=== PATIENT | female | born 1980 | race Caucasian/White ===

== ENCOUNTER 2020-10-19 19:57 | Emergency (ER) | payer BC, OTHER ==
[~2020-10-19] VITALS: Ht 162.6 cm; Wt 57.2 kg
[2020-10-19] MEDS ORDERED: LACTATED RINGERS 1,000 ML IV ONE (20:30)
[2020-10-19 20:34] LABS: BASOPHILS % (AUTO) 0 % (0-10); BILIRUBIN,URINE NEGATIVE (NEGATIVE); CLARITY,URINE SL CLOUDY; COLOR,URINE YELLOW; EOSINOPHILS # (AUTO) 0.3 10^3/uL (0.0-0.3); EOSINOPHILS % (AUTO) 4 % (0-10); GLUCOSE, URINE (UA) NEGATIVE (NEGATIVE); HEMATOCRIT 44 % (35-52); HEMOGLOBIN 14.1 g/dL (11.5-16.0); KETONES,URINE NEGATIVE (NEGATIVE); LEUKOCYTE ESTERASE ,URINE NEGATIVE (NEGATIVE); LYMPHOCYTES # (AUTO) 2.5 10^3/uL (1.0-4.0); LYMPHOCYTES % (AUTO) 32 % (12-44); MEAN CORPUSCULAR HEMOGLOBIN 29 pg (25-34); MEAN CORPUSCULAR HGB CONC 32 g/dL (32-36); MEAN CORPUSCULAR VOLUME 90 fL (80-99); MONOCYTES # (AUTO) 0.5 10^3/uL (0.0-1.0); MONOCYTES % (AUTO) 7 % (0-12); NEUTROPHILS # (AUTO) 4.5 10^3/uL (1.8-7.8); NEUTROPHILS % (AUTO) 57 % (42-75); NITRITE,URINE NEGATIVE (NEGATIVE); PLATELET COUNT 309 10^3/uL (130-400); PROTEIN,URINE NEGATIVE (NEGATIVE); WHITE BLOOD COUNT 7.9 10^3/uL (4.3-11.0)
[2020-10-19 20:42] LABS: BACTERIA,URINE TRACE /HPF; SQUAMOUS EPITHELIAL CELL,UR >50 /HPF
[2020-10-19] MEDS ORDERED: ACETAMINOPHEN 500 MG TAB (TYLENOL) PO ONE (20:45)
[2020-10-19] MEDS ORDERED: PROMETHAZINE INJ 25 MG/ML (PHENERGAN) AMP IVP ONE (20:45)
--- NOTE | 2020-10-19 20:49 | ED GU-Female ---
General Chief Complaint: Female Reproductive Stated Complaint: 4 WKS PREG/MED WITHDRAWL/NAUSEA/VOMITING Nursing Triage Note: PT AMBULATE TO ROOM 05 WITH C/O N/V/ABD PAIN. PT REPORTS STOPPING PRISTIN ON WEDNESDAY AND HAS HAD SYMPTOMS SINCE THEN. Nursing Sepsis Screen: No Definite Risk Source: patient Exam Limitations: no limitations History of Present Illness Date Seen by Provider: Oct 19, 2020 Time Seen by Provider: 20:16 Initial Comments Patient presents ER by private conveyance with chief complaint she has some nausea body aches and vomiting and poor appetite for the past 3 to 4 days. 4 days ago on Wednesday she discovered she was because she started having b reast fullness, morning sickness. She had a positive urine test on 10/15/2020. She has not set up follow-up with a OB yet but she is thinking about using Dr. Fajardo at [employer]. She works at [employer] in the [employer]. She says she had a negative Covid test a week or 2 ago and no known sick contacts. She does not want to be tested today. She is having no fevers or chills. She said one of her children she had lots of nausea and vomiting and the other she did not. She went to urgent care yesterday and got some Phenergan which helped some. She is a G3, P2 with unknown last menstrual period because of her irregular periods. She thinks she is around 4 weeks but does not now. No ultrasound yet. No diarrhea rash or significant other medical history. She is on Pristiq/desvenlafaxine and stopped it on Wednesday when she discovered she was . Her last child is 16 years old. She denies any dysuria discharge or history of STDs. She was tested 1 year ago and was negative when she got . She is in a monogamous relationship. She is not having dyspareunia and her last intercourse was about 6 days ago. She is having some discomfort in her low pelvis that she describes not as cramping but as sharp intermittent stinging pain. She has not taken anything for the pain recently. She has had C-sections but no other abdominal surgeries. No fever Allergies and Home Medications Allergies Coded Allergies: Penicillins (Verified Allergy, Unknown, 10/19/20) Patient Home Medication List Home Medication List Reviewed: Yes Review of Systems Review of Systems Constitutional: No chills, No fever, No malaise EENTM: No ear discharge, No hearing loss, No ear pain Respiratory: No cough, No dyspnea on exertion Cardiovascular: No chest pain, No palpitations Gastrointestinal: abdominal pain (Low pelvic bilateral); No constipation, No diarrhea; loss of appetite, nausea, vomiting Genitourinary: denies burning, denies discharge, denies dysuria Musculoskeletal: No back pain, No joint pain All Other Systemes Reviewed Negative Unless Noted: Yes Past Oqtzdwy-Oospge-Tozckq Hx Patient Social History Alcohol Use: Denies Use Recreational Drug Use: No Smoking Status: Never a Smoker 2nd Hand Smoke Exposure: No Recent Foreign Travel: No Contact w/Someone Who Travel: No Recent Infectious Disease Expo: No Recent Hopitalizations: No Physical Abuse: No Sexual Abuse: No Mistreated: No Fear: No Seasonal Allergies Seasonal Allergies: No Past Medical History Surgeries: No Respiratory: No Cardiac: No Neurological: No Genitourinary: No Gastrointestinal: No Musculoskeletal: No Endocrine: No HEENT: No Cancer: No Psychosocial: Yes Anxiety Integumentary: No Blood Disorders: No Physical Exam Vital Signs Vital Signs - First Documented 10/19/20 20:14 Temp 36.8 Pulse 105 Resp 18 B/P (MAP) 124/87 (99) O2 Delivery Room Air Capillary Refill : Less Than 3 Seconds Height, Weight, BMI Height: '" Weight: lbs. oz. kg; 21.00 BMI Method: General Appearance: WD/WN, mild distress HEENT: PERRL/EOMI, pharynx normal Neck: full range of motion, normal inspection Cardiovascular: normal peripheral pulses, regular rate, rhythm, tachycardia (105) Respiratory: lungs clear, normal breath sounds, no respiratory distress, no accessory muscle use Gastrointestinal: normal bowel sounds, soft, tenderness (Suprapubic), other (Negative for pain over McBurney's point, Bucio sign, psoas sign or mesenteric signs. No Rovsing sign. Tenderness along the inguinal canal bilaterally to moderate pressure) Extremities: normal range of motion, non-tender Neurologic/Psychiatric: alert, normal mood/affect, oriented x 3 Skin: normal color, warm/dry Progress/Results/Core Measures Suspected Sepsis Recent Fever Within 48 Hours: No Infection Criteria Present: None New/Unexplained Altered Menta: No Sepsis Screen: No Definite Risk SIRS Temperature: Pulse: 105 Respiratory Rate: 18 Laboratory Tests 10/19/20 20:15: White Blood Count 7.9 Blood Pressure 124 /87 Mean: 99 Laboratory Tests 10/19/20 20:15: Creatinine 0.80, Platelet Count 309, Total Bilirubin 0.2 Results/Orders Lab Results Laboratory Tests Test 10/19/20 20:15 Range/Units White Blood Count 7.9 4.3-11.0 10^3/uL Red Blood Count 4.85 3.80-5.11 10^6/uL Hemoglobin 14.1 11.5-16.0 g/dL Hematocrit 44 35-52 % Mean Corpuscular Volume 90 80-99 fL Mean Corpuscular Hemoglobin 29 25-34 pg Mean Corpuscular Hemoglobin Concent 32 32-36 g/dL Red Cell Distribution Width 11.9 10.0-14.5 % Platelet Count 309 130-400 10^3/uL Mean Platelet Volume 11.0 9.0-12.2 fL Immature Granulocyte % (Auto) 0 % Neutrophils (%) (Auto) 57 42-75 % Lymphocytes (%) (Auto) 32 12-44 % Monocytes (%) (Auto) 7 0-12 % Eosinophils (%) (Auto) 4 0-10 % Basophils (%) (Auto) 0 0-10 % Neutrophils # (Auto) 4.5 1.8-7.8 10^3/uL Lymphocytes # (Auto) 2.5 1.0-4.0 10^3/uL Monocytes # (Auto) 0.5 0.0-1.0 10^3/uL Eosinophils # (Auto) 0.3 0.0-0.3 10^3/uL Basophils # (Auto) 0.0 0.0-0.1 10^3/uL Immature Granulocyte # (Auto) 0.0 0.0-0.1 10^3/uL Urine Color YELLOW Urine Clarity SL CLOUDY Urine pH 6.0 5-9 Urine Specific [place] 1.025 H 1.016-1.022 Urine Protein NEGATIVE NEGATIVE Urine Glucose (UA) NEGATIVE NEGATIVE Urine Ketones NEGATIVE NEGATIVE Urine Nitrite NEGATIVE NEGATIVE Urine Bilirubin NEGATIVE NEGATIVE Urine Urobilinogen 0.2 < = 1.0 MG/DL Urine Leukocyte Esterase NEGATIVE NEGATIVE Urine RBC (Auto) TRACE-I NEGATIVE Urine RBC 2-5 H /HPF Urine WBC NONE /HPF Urine Squamous Epithelial Cells >50 H /HPF Urine Crystals NONE /LPF Urine Bacteria TRACE /HPF Urine Casts NONE /LPF Urine Mucus NEGATIVE /LPF Urine Culture Indicated NO Urine Test POSITIVE NEGATIVE Sodium Level 137 135-145 MMOL/L Potassium Level 3.8 3.6-5.0 MMOL/L Chloride Level 103 98-107 MMOL/L Carbon Dioxide Level 27 21-32 MMOL/L Anion Gap 7 5-14 MMOL/L Blood Urea Nitrogen 11 7-18 MG/DL Creatinine 0.80 0.60-1.30 MG/DL Estimat Glomerular Filtration Rate > 60 BUN/Creatinine Ratio 14 Glucose Level 94 70-105 MG/DL Calcium Level 9.6 8.5-10.1 MG/DL Corrected Calcium 8.5-10.1 MG/DL Total Bilirubin 0.2 0.1-1.0 MG/DL Aspartate Amino Transf (AST/SGOT) 23 5-34 U/L Alanine Aminotransferase (ALT/SGPT) 22 0-55 U/L Alkaline Phosphatase 61 40-136 U/L Total Protein 8.1 6.4-8.2 GM/DL Albumin 4.6 H 3.2-4.5 GM/DL My Orders Orders - APOLLO KIMBLE Ed Iv/Invasive Line Start (10/19/20 20:27) Lactated Ringers (Lr 1000 Ml Iv Solution (10/19/20 20:30) Ua Culture If Indicated (10/19/20 20:27) Hcg,Qualitative Urine (10/19/20 20:27) Cbc With Automated Diff (10/19/20 20:27) Comprehensive Metabolic Panel (10/19/20 20:27) Acetaminophen Tablet (Tylenol Tablet) (10/19/20 20:45) Promethazine Injection (Phenergan Injec (10/19/20 20:45) Diphenhydramine Injection (Benadryl Inje (10/19/20 21:45) Medications Given in ED Current Medications Medications Dose Ordered Sig/Latrice Route Start Time Stop Time Status Last Admin Dose Admin Acetaminophen 1,000 mg ONCE ONCE PO 10/19/20 20:45 10/19/20 20:46 DC 10/19/20 20:41 1,000 MG Diphenhydramine HCl 25 mg ONCE ONCE IVP 10/19/20 21:45 10/19/20 21:46 DC 10/19/20 21:47 25 MG Lactated Ringer's 1,000 ml @ 0 mls/hr Q0M ONCE IV 10/19/20 20:30 10/19/20 20:31 DC 10/19/20 20:41 999 MLS/HR Promethazine HCl 25 mg ONCE ONCE IVP 10/19/20 20:45 10/19/20 20:46 DC 10/19/20 20:40 25 MG Vital Signs/I&O 10/19/20 20:14 Temp 36.8 Pulse 105 Resp 18 B/P (MAP) 124/87 (99) O2 Delivery Room Air Capillary Refill : Less Than 3 Seconds Blood Pressure Mean: 99 Progress Note #1: Time: 20:48 Progress Note Could be round ligament pain versus other intra-abdominal infection such as appendicitis etc. She declined any viral testing today. She is not having a fever cough or loss of sense of taste or smell. Plan to give her some Phenergan and IV fluids check some basic labs and urinalysis. If these are okay then we can set her up for ultrasound outpatient. If there is anything concerning then we can try and get an ultrasound done tonight. Her pain has been going on since Wednesday in her low pelvis so it is unlikely she has a torsion. Progress Note #2: Time: 21:36 Progress Note Patient is having some spasming cramping in her legs and feels like it will be more difficult to enunciate. Suspect she is having a reaction to the Phenergan and ordered 25 mg Benadryl IV. Progress Note #3: Time: 22:25 Progress Note Patient is feeling much better and ready to go home. Labs are unremarkable. We have encouraged her with return precautions reassured her and will allow her to follow-up with her [facility] Departure Impression Primary Impression: Pelvic pain affecting in first trimester, antepartum Disposition: 01 HOME, SELF-CARE Condition: Stable Departure-Patient Inst. Decision time for Depature: 22:25 Referrals: QUAN AKINS MD (PCP/Family) Primary Care Physician Patient Instructions: Pelvic Pain (DC), Round Ligament Pain Add. Discharge Instructions: Plan to follow-up with your [facility] of choice in the next week or 2 if possible. Return to the ER for worsening symptoms. Tylenol 1000 mg every 8 hours as necessary for pain. Heating pads can be helpful. Benadryl 1 to 2 tablets every 6 hours as necessary for insomnia or allergic symptoms. All discharge instructions reviewed with patient and/or family. Voiced understanding. APOLLO KIMBLE Oct 19, 2020 20:49
[2020-10-19 20:50] LABS: ALANINE AMINOTRANSFERASE 22 U/L (0-55); ALBUMIN 4.6 GM/DL (3.2-4.5); ALKALINE PHOSPHATASE 61 U/L (40-136); BILIRUBIN,TOTAL 0.2 MG/DL (0.1-1.0); BUN/CREATININE RATIO 14; CALCIUM 9.6 MG/DL (8.5-10.1); CARBON DIOXIDE 27 MMOL/L (21-32); CHLORIDE 103 MMOL/L (98-107); GFR ESTIMATED > 60; GLUCOSE 94 MG/DL (70-105); POTASSIUM 3.8 MMOL/L (3.6-5.0); SODIUM 137 MMOL/L (135-145); TOTAL PROTEIN 8.1 GM/DL (6.4-8.2)
[2020-10-19] MEDS ORDERED: diphenhydrAMINE 50 MG/ML INJ (BENADRYL) IVP ONE (21:45)
[2020-10-19 22:38] VITALS: BP 122/64
== END 2020-10-19 22:38 | disposition home or self-care (01) ==
LOC: EDUNIT# 19:57 → ER 20:00
DX: O26.891 Other specified pregnancy related conditions, first trimester (principal); R10.2 Pelvic and perineal pain; Z3A.00 Weeks of gestation of pregnancy not specified; Z88.0 Allergy status to penicillin
CPT/HCPCS: 36415; 80053; 81000; 84703; 85025

== ENCOUNTER 2021-05-01 19:51 | Outpatient (CLI) | payer BC ==
[~2021-05-01] VITALS: Ht 162.6 cm; Wt 37.8 kg
[2021-05-01 20:05] VITALS: BP 109/69
[2021-05-01 20:18] VITALS: BP 109/69
[2021-05-01 20:24] LABS: BILIRUBIN,URINE NEGATIVE (NEGATIVE); CLARITY,URINE CLEAR; COLOR,URINE YELLOW; GLUCOSE, URINE (UA) NEGATIVE (NEGATIVE); KETONES,URINE 1+ (NEGATIVE); LEUKOCYTE ESTERASE ,URINE 2+ (NEGATIVE); NITRITE,URINE NEGATIVE (NEGATIVE); PROTEIN,URINE NEGATIVE (NEGATIVE)
[2021-05-01 20:30] LABS: BACTERIA,URINE MODERATE /HPF
[2021-05-01 20:35] VITALS: BP 109/69
[2021-05-01] MEDS ORDERED: D5 LR IV SOLUTION 1,000 ML IV ONE (20:38)
[2021-05-01] MEDS ORDERED: D5 LR IV SOLUTION 1,000 ML IV SCH (20:45)
[2021-05-01] MEDS ORDERED: ACETAMINOPHEN 500 MG TAB (TYLENOL) ONE (22:58)
[2021-05-01] MEDS ORDERED: ACETAMINOPHEN 500 MG TAB (TYLENOL) PO ONE (23:00)
--- NOTE | 2021-05-02 08:28 | Physician Query-Final Dx ---
AREN GUTHRIE 05/02/21 0828: Clinic Account Progress/Dx Physician Query: Please give diagnosis Please include # weeks gestation Date of Service May 01, 2021 at 19:51 OSEAS ELLISON MD 05/02/21 1243: Clinic Account Progress/Dx DIAGNOSIS: Diagnosis 32 weeks gestation with false labor AREN GUTHRIE May 02, 2021 08:28 OSEAS ELLISON MD May 02, 2021 12:43
== END 2021-05-01 23:10 | disposition home or self-care (01) ==
LOC: LDRP 19:51 → WSo 19:51
PROVIDERS: ATTEND Obstetrics & Gynecology
DX: O62.9 Abnormality of forces of labor, unspecified (principal); Z3A.32 32 weeks gestation of pregnancy
CPT/HCPCS: 81000; 87077; 87088; 87186; 96360; 96361; G0463; 99214

== ENCOUNTER 2021-05-26 13:11 | Outpatient (CLI) | payer BC ==
[~2021-05-26] VITALS: Ht 162.5 cm; Wt 67.4 kg
[2021-05-26 13:38] VITALS: BP 119/72
[2021-05-26 13:52] VITALS: BP 119/72
[2021-05-26 13:53] LABS: BILIRUBIN,URINE NEGATIVE (NEGATIVE); CLARITY,URINE CLEAR; COLOR,URINE YELLOW; GLUCOSE, URINE (UA) NEGATIVE (NEGATIVE); KETONES,URINE NEGATIVE (NEGATIVE); LEUKOCYTE ESTERASE ,URINE NEGATIVE (NEGATIVE); NITRITE,URINE NEGATIVE (NEGATIVE); PH,URINE 6.5 (5-9); PROTEIN,URINE NEGATIVE (NEGATIVE)
[2021-05-26 13:55] VITALS: BP 119/72
[2021-05-26 14:00] VITALS: BP 102/64
[2021-05-26 14:13] LABS: BACTERIA,URINE TRACE /HPF
--- NOTE | 2021-05-27 08:17 | Physician Query-Final Dx ---
AREN GUTHRIE 05/27/21 0817: Clinic Account Progress/Dx Physician Query: Please give diagnosis Please include # weeks gestation Date of Service May 26, 2021 at 13:11 OSEAS ELLISON MD 05/27/21 1055: Clinic Account Progress/Dx DIAGNOSIS: Diagnosis 35 weeks gestation with false labor AREN GUTHRIE May 27, 2021 08:17 OSEAS ELLISON MD May 27, 2021 10:55
--- NOTE | 2021-05-28 07:51 | Physician Query-Final Dx ---
AREN GUTHRIE 05/28/21 0751: Clinic Account Progress/Dx Physician Query: Please give diagnosis Please include # weeks gestation Date of Service May 26, 2021 at 13:11 OSEAS ELLISON MD 05/28/21 1248: Clinic Account Progress/Dx DIAGNOSIS: Diagnosis 35 weeks gestation with false labor AREN GUTHRIE May 28, 2021 07:51 OSEAS ELLISON MD May 28, 2021 12:48
== END 2021-05-26 14:40 | disposition home or self-care (01) ==
LOC: WSo 13:11 → LDRP 13:12 → WSo 14:40
PROVIDERS: ATTEND Obstetrics & Gynecology
DX: O42.913 Preterm premature rupture of membranes, unspecified as to length of time between rupture and onset of labor, third trimester (principal); O47.03 False labor before 37 completed weeks of gestation, third trimester; Z3A.35 35 weeks gestation of pregnancy
CPT/HCPCS: 81000; 87088; G0463; 99214

== ENCOUNTER 2021-05-27 09:49 | Outpatient (CLI) | payer BC ==
[~2021-05-27] VITALS: Ht 162.6 cm; Wt 68.7 kg
[2021-05-27] MEDS ORDERED: D5 LR IV SOLUTION 1,000 ML IV ONE (10:12)
[2021-05-27 10:35] VITALS: BP 108/72
[2021-05-27] MEDS: D5 LR IV SOLUTION 1,000 ML IV SCH ×3 (10:39→18:55)
[2021-05-27 12:52] LABS: BASOPHILS % (AUTO) 0 % (0-10); EOSINOPHILS # (AUTO) 0.1 10^3/uL (0.0-0.3); EOSINOPHILS % (AUTO) 1 % (0-10); HEMATOCRIT 36 % (35-52); HEMOGLOBIN 11.5 g/dL (11.5-16.0); LYMPHOCYTES # (AUTO) 1.4 10^3/uL (1.0-4.0); LYMPHOCYTES % (AUTO) 14 % (12-44); MEAN CORPUSCULAR HEMOGLOBIN 30 pg (25-34); MEAN CORPUSCULAR HGB CONC 32 g/dL (32-36); MEAN CORPUSCULAR VOLUME 92 fL (80-99); MEAN PLATELET VOLUME 11.8 fL (9.0-12.2); MONOCYTES # (AUTO) 0.5 10^3/uL (0.0-1.0); MONOCYTES % (AUTO) 6 % (0-12); NEUTROPHILS # (AUTO) 7.7 10^3/uL (1.8-7.8); NEUTROPHILS % (AUTO) 79 % (42-75); PLATELET COUNT 198 10^3/uL (130-400); WHITE BLOOD COUNT 9.7 10^3/uL (4.3-11.0)
[2021-05-27] MEDS ORDERED: BUTORPHANOL INJ 2 MG/ML (STADOL) VIAL IV PRN (14:45)
[2021-05-27] MEDS ORDERED: BETAMETHASONE ACE/NA PHOS 6 MG/ML (CELESTONE SOLUSPAN) ONE (14:57)
[2021-05-27] MEDS: BETAMETHASONE ACE/NA PHOS 6 MG/ML (CELESTONE SOLUSPAN) IM SCH (15:04)
[2021-05-27 17:05] VITALS: BP 104/69
[2021-05-27] MEDS ORDERED: ONDANSETRON 4 MG/2 ML (SDV) Z0FRAN IVP ONE (17:30)
[2021-05-27 20:20] VITALS: BP 110/65
[2021-05-27] MEDS ORDERED: ACETAMINOPHEN 500 MG TAB (TYLENOL) ONE (22:29)
[2021-05-27] MEDS ORDERED: ACETAMINOPHEN 500 MG TAB (TYLENOL) PO PRN (22:30)
[2021-05-28 02:19] VITALS: BP 98/58
[2021-05-28] MEDS: D5 LR IV SOLUTION 1,000 ML IV SCH ×2 (04:29→06:47)
[2021-05-28 07:52] VITALS: BP 98/59
[2021-05-28 08:55] VITALS: BP 98/59
[2021-05-28] MEDS: BETAMETHASONE ACE/NA PHOS 6 MG/ML (CELESTONE SOLUSPAN) IM SCH (08:55)
--- NOTE | 2021-05-28 11:23 | History & Physical ---
History and Physical Date Seen by Provider: May 27, 2021 Time Seen by Provider: 12:15 This patient is a 40-year-old 3 para 2 white female who currently is at 35+ weeks gestation. She was seen in my clinic on this date for complaint of discharge and concern for leaking amniotic fluid. She was also complaining contractions every 2 to 3 minutes. Evaluation for rupture membranes was negative with the nitrazine negative. NST showed contractions every 2 to 5 minutes lasting over 60 seconds. Her cervical exam was 3 cm dilated 60% effaced -1 station. She was sent from clinic to labor and delivery for evaluation observation and management. Allergies are to penicillin and codeine Medications are vitamins Medical social and surgical history is all per the antepartum record HEENT exam is normal Neck is supple no lymphadenopathy no thyromegaly Abdomen is gravid soft nontender nondistended Extremities show no clubbing cyanosis. Normal exam. Pelvic exam shows a cervix 3 cm dilated 60% effaced -1 station vertex presentation with a repeat nitrazine negative on evaluation monitor shows contractions every 2 minutes with normal heart rate pattern/category 1 Assessment and plan 35-6/7 weeks gestation with labor. We will hydrate and observe for resolution of her contractions versus progressing labor. As she is we will go ahead with betamethasone now and repeat in 24 hours. Group B strep culture was obtained in clinic and is not available. If patient demonstrates cervical change we would start prophylactic antibiotic. If patient remains stable we will reevaluate in the morning 35+ weeks gestation with labor Allergies and Home Medications Allergies Coded Allergies: Penicillins (Verified Allergy, Unknown, 10/19/20) codeine (Verified Allergy, Unknown, Vomiting, 02/25/21) Home Medications No Active Prescriptions or Reported Meds Patient Home Medication List Home Medication List Reviewed: Yes OSEAS ELLISON MD May 28, 2021 11:22
--- NOTE | 2021-05-28 11:24 | Progress Note ---
Standard Progress Note Progress Notes/Assess & Plan Date Seen by a Provider: May 28, 2021 Time Seen by a Provider: 11:23 Progress/Assessment & Plan Patient is without complaint except for persistent discomfort in the pelvis and low back as would be expected at this point . She denies contractions. She does feel baby moving and feels like the discomfort a little bit worse with movement. She denies rupture membranes or bleeding at this point. Patient denies nausea vomiting and headache. Vital Signs Date Time Temp Pulse Resp B/P (MAP) Pulse Ox O2 Delivery O2 Flow Rate FiO2 05/28/21 02:19 36.6 80 18 98/58 (71) Room Air 05/27/21 20:20 36.6 81 18 110/65 (80) Room Air 05/27/21 17:05 36.4 73 18 104/69 (81) Vital signs are stable. Patient is afebrile. monitor shows a category 1 heart rate pattern with rare contractions less than for an hour The abdomen is benign Extremities show no clubbing or cyanosis. There is no Homans' sign. Pelvic exam is deferred Assessment and plan hospital day #2 now at 36 weeks gestation with labor. She has received a single dose of betamethasone we will repeat that toda y. As her contractions have spaced out and she is made no cervical change we will allow discharge home with follow-up in clinic Final Diagnosis 36-week labor OSEAS ELLISON MD May 28, 2021 11:24
== END 2021-05-28 09:00 | disposition home or self-care (01) ==
LOC: LDRP 09:49 → WSo 09:49 → LDRP 17:55 → WSo 05-28 09:00
PROVIDERS: ATTEND Obstetrics & Gynecology
DX: O60.14X0 Preterm labor third trimester with preterm delivery third trimester, not applicable or unspecified (principal); Z3A.36 36 weeks gestation of pregnancy
CPT/HCPCS: 36415; 85025; 86850; 86900; 86901; 96361; 96372; 96374; 96375

== ENCOUNTER 2021-05-30 01:36 | Inpatient (IN) | payer BC ==
[2021-05-30] VITALS (47 sets, daily range): BP systolic 85–130; BP diastolic 48–68
[~2021-05-30] VITALS: Ht 162.6 cm; Wt 69.4 kg
[2021-05-30] MEDS ORDERED: D5 LR IV SOLUTION 1,000 ML IV ONE (01:57)
[2021-05-30] MEDS ORDERED: D5 LR IV SOLUTION 1,000 ML IV SCH ×2 (02:30→14:15)
[2021-05-30] MEDS ORDERED: PREN-98 PO (02:43)
[2021-05-30 02:45] LABS: BASOPHILS % (AUTO) 0 % (0-10); EOSINOPHILS % (AUTO) 0 % (0-10); HEMATOCRIT 36 % (35-52); HEMOGLOBIN 11.7 g/dL (11.5-16.0); LYMPHOCYTES # (AUTO) 1.3 10^3/uL (1.0-4.0); LYMPHOCYTES % (AUTO) 11 % (12-44); MEAN CORPUSCULAR HEMOGLOBIN 30 pg (25-34); MEAN CORPUSCULAR HGB CONC 33 g/dL (32-36); MEAN CORPUSCULAR VOLUME 91 fL (80-99); MEAN PLATELET VOLUME 12.2 fL (9.0-12.2); MONOCYTES # (AUTO) 0.8 10^3/uL (0.0-1.0); MONOCYTES % (AUTO) 7 % (0-12); NEUTROPHILS # (AUTO) 9.9 10^3/uL (1.8-7.8); NEUTROPHILS % (AUTO) 82 % (42-75); PLATELET COUNT 196 10^3/uL (130-400); WHITE BLOOD COUNT 12.2 10^3/uL (4.3-11.0)
[2021-05-30 02:47] LABS: BILIRUBIN,URINE NEGATIVE (NEGATIVE); CLARITY,URINE CLEAR; COLOR,URINE YELLOW; GLUCOSE, URINE (UA) NEGATIVE (NEGATIVE); KETONES,URINE NEGATIVE (NEGATIVE); LEUKOCYTE ESTERASE ,URINE NEGATIVE (NEGATIVE); NITRITE,URINE NEGATIVE (NEGATIVE); PROTEIN,URINE NEGATIVE (NEGATIVE)
[2021-05-30 02:56] LABS: BACTERIA,URINE TRACE /HPF
[2021-05-30] MEDS ORDERED: fentaNYL INJ 100 MCG/2 ML AMP ONE ×2 (06:40→12:46)
[2021-05-30] MEDS ORDERED: fentaNYL INJ 100 MCG/2 ML AMP IVP ONE (06:45)
[2021-05-30] MEDS: D5 LR IV SOLUTION 1,000 ML IV SCH ×2 (06:51→14:01)
--- NOTE | 2021-05-30 06:54 | History & Physical ---
History and Physical Date Seen by Provider: May 30, 2021 Time Seen by Provider: 06:51 This patient is a 40-year-old 3 para 2 female currently at 36+ weeks gestation admitted for labor. This is her second admission this week for that problem. She has demonstrated cervical change since the period of observation was initiated on this episode. She denies rupture membranes or bleeding. She did receive a complete dose of steroids earlier this week in response to labor. Her contractions at that time resolved without cervical change and she was discharged home Patient returned last evening with complaint of regular frequent and did demonstrate change her cervix is now over 4 cm dilated she continues to contract and is obviously in pain GBS culture was returned as negative Allergies to penicillins and codeine Medications are vitamins Medical social and surgical histories are per the antepartum record HEENT exam is normal Neck is supple no lymphadenopathy no thyromegaly Abdomen is gravid soft nontender nondistended Extremities show no clubbing cyanosis. Is normal exam. Pelvic exam per the nurse shows a cervix 4 cm dilated 60 to 70% effaced vertex presentation Lab work is as follows Laboratory Tests Test 05/30/21 02:20 05/30/21 02:30 Range/Units Urine Color YELLOW Urine Clarity CLEAR Urine pH 6.0 5-9 Urine Specific [place] 1.020 1.016-1.022 Urine Protein NEGATIVE NEGATIVE Urine Glucose (UA) NEGATIVE NEGATIVE Urine Ketones NEGATIVE NEGATIVE Urine Nitrite NEGATIVE NEGATIVE Urine Bilirubin NEGATIVE NEGATIVE Urine Urobilinogen 1.0 < = 1.0 MG/DL Urine Leukocyte Esterase NEGATIVE NEGATIVE Urine RBC (Auto) NEGATIVE NEGATIVE Urine RBC NONE /HPF Urine WBC NONE /HPF Urine Squamous Epithelial Cells 10-25 H /HPF Urine Crystals NONE /LPF Urine Bacteria TRACE /HPF Urine Casts NONE /LPF Urine Mucus LARGE H /LPF Urine Culture Indicated NO White Blood Count 12.2 H 4.3-11.0 10^3/uL Red Blood Count 3.95 3.80-5.11 10^6/uL Hemoglobin 11.7 11.5-16.0 g/dL Hematocrit 36 35-52 % Mean Corpuscular Volume 91 80-99 fL Mean Corpuscular Hemoglobin 30 25-34 pg Mean Corpuscular Hemoglobin Concent 33 32-36 g/dL Red Cell Distribution Width 12.8 10.0-14.5 % Platelet Count 196 130-400 10^3/uL Mean Platelet Volume 12.2 9.0-12.2 fL Immature Granulocyte % (Auto) 1 % Neutrophils (%) (Auto) 82 H 42-75 % Lymphocytes (%) (Auto) 11 L 12-44 % Monocytes (%) (Auto) 7 0-12 % Eosinophils (%) (Auto) 0 0-10 % Basophils (%) (Auto) 0 0-10 % Neutrophils # (Auto) 9.9 H 1.8-7.8 10^3/uL Lymphocytes # (Auto) 1.3 1.0-4.0 10^3/uL Monocytes # (Auto) 0.8 0.0-1.0 10^3/uL Eosinophils # (Auto) 0.0 0.0-0.3 10^3/uL Basophils # (Auto) 0.0 0.0-0.1 10^3/uL Immature Granulocyte # (Auto) 0.1 0.0-0.1 10^3/uL monitor shows contractions every 2 to 3 minutes with a category 1 heart rate pattern Assessment and plan 36-week multigravid with labor. We will continue observation if she demonstrates any further cervical change we will prepare for delivery. At this point we will continue observation 36-week with labor Allergies and Home Medications Allergies Coded Allergies: Penicillins (Verified Allergy, Unknown, 10/19/20) codeine (Verified Allergy, Unknown, Vomiting, 02/25/21) Home Medications Vit37/Iron/Folic Acid 1 Each Tab.chew, 1 EACH PO DAILY, (Reported) Last Action: New Order Patient Home Medication List Home Medication List Reviewed: Yes OSEAS ELLISON MD May 30, 2021 06:54
[2021-05-30] MEDS ORDERED: DOCU-143 PO (07:01)
[2021-05-30] MEDS ORDERED: IBUP-1780 PO (07:01)
[2021-05-30] MEDS ORDERED: OXYC1TAB87 PO (07:01)
--- NOTE | 2021-05-30 07:01 | Discharge Inst-Surgical ---
Discharge Inst-Surgical Consults/Follow Up Patient Instructions: As directed Orders & Referrals Follow Up Appt: Call to make follow up appt. for patient in 4 weeks. Activity Per routine post vaginal delivery instructions. Diet as tolerated Patient may shower or tub bathe as desired. Activity Activity as Tolerated: No Diet Discharge Diet: No Restrictions OSEAS ELLISON MD May 30, 2021 07:01
[2021-05-30] MEDS ORDERED: fentaNYL 2 mcg/ml BUPIVA 0.125 100 ML ONE (12:34)
[2021-05-30] MEDS ORDERED: LACTATED RINGERS 1,000 ML IV ONE ×2 (12:45)
[2021-05-30] MEDS ORDERED: ONDANSETRON 4 MG/2 ML (SDV) Z0FRAN IV PRN (12:45)
[2021-05-30] MEDS ORDERED: NALOXONE 0.4 MG/ML 1 ML (NARCAN) VIAL IV PRN (12:45)
[2021-05-30] MEDS ORDERED: BUPIVACAINE 0.25% 30 ML (SENSORCAINE) VIAL ONE (12:45)
[2021-05-30] MEDS ORDERED: fentaNYL INJ 100 MCG/2 ML AMP INJ ONE (12:45)
[2021-05-30] MEDS ORDERED: EPIDURAL (fentaNYL 2 MCG/ML BUPIVA 0.125%)100 ML BAG EPI PRN (12:45)
[2021-05-30] MEDS ORDERED: OXYTOCIN PRE-MIX DRIP 500 ML IV ONE (14:06)
[2021-05-30] MEDS ORDERED: OXYTOCIN PRE-MIX DRIP 500 ML IV SCH ×2 (14:15→21:00)
[2021-05-30] MEDS ORDERED: BENZOCAINE/MENTHOL (DERMOPLAST) 56 ML CAN TP PRN (21:00)
[2021-05-30] MEDS ORDERED: ONDANSETRON 4 MG/2 ML (SDV) Z0FRAN IVP PRN (21:00)
[2021-05-30] MEDS ORDERED: TETANUS,DIPTH,PERTUSS P/F (BOOSTRIX) 0.5 ML VIAL IM ONE (21:00)
[2021-05-30] MEDS ORDERED: MEASLES,MUMPS,RUBELLA 1 EA INJ SC ONE (21:00)
[2021-05-30] MEDS: KETOROLAC 30 MG/ML VIAL IVP SCH (21:06)
[2021-05-31 01:48] VITALS: BP 108/57
[2021-05-31] MEDS: KETOROLAC 30 MG/ML VIAL IVP SCH (03:13)
[2021-05-31 05:36] VITALS: BP 92/50
--- NOTE | 2021-05-31 06:51 | Anesthesia-Regional Post-Op ---
Regional Patient Condition Mental Status: Alert, Oriented x3 Circulation: Same as Pre-Op Headache: Absent Sensation: Full Recovery Motor Block: Absent Post Op Complications Complications None Follow Up Care/Instructions Patient Instructions None needed. Anesthesia/Patient Condition Patient is doing well, no complaints, stable vital signs, no apparent adverse anesthesia problems. No complications reported per nursing. [place] [facility] [place]: No BASIM MCMILLAN CRNA May 31, 2021 06:51
[2021-05-31 09:15] VITALS: BP 101/51
[2021-05-31] MEDS ORDERED: IBUPROFEN 800 MG (MOTRIN) TAB PO ONE (09:30)
[2021-05-31] MEDS ORDERED: DIBUCAINE 1% OINTMENT 30 GM TUBE TOP PRN (09:45)
[2021-05-31] MEDS ORDERED: WITCH HAZEL(TUCKS) 40 EA JAR TOP PRN (09:45)
[2021-05-31] MEDS: DOCUSATE SODIUM 100 MG (COLACE) CAP PO SCH (09:52)
[2021-05-31] MEDS: IBUPROFEN 800 MG (MOTRIN) TAB PO SCH ×3 (09:52→18:00)
--- NOTE | 2021-05-31 10:46 | Progress Note ---
Standard Progress Note Progress Notes/Assess & Plan Date Seen by a Provider: May 31, 2021 Time Seen by a Provider: 10:45 Progress/Assessment & Plan This patient is without complaintShe is ambulating, voiding, tolerating oral intake well and has good pain control. Patient denies chest pain, denies shortness of breath, denies nausea vomiting, and denies headache. Patient is requesting discharge home. Vital Signs 05/31/21 05:36 Temp 36.7 Pulse 56 Resp 18 B/P (MAP) 92/50 (64) Pulse Ox 94 O2 Delivery Room Air Vital signs are stable. Patient is afebrile. Fundus is firm below the umbilicus and nontender Extremities show no clubbing cyanosis. There is no Homans' sign. Assessment and plan day #1 status post spontaneous vaginal delivery at 36+ weeks gestation. Patient is doing well and can be discharged home as needed Final Diagnosis 36-week spontaneous vaginal delivery OSEAS ELLISON MD May 31, 2021 10:46
[2021-05-31] MEDS ORDERED: OXYC1TAB87 PO (10:49)
[2021-05-31] MEDS ORDERED: DCS100C PO (10:49)
[2021-05-31] MEDS ORDERED: IBUP-1780 PO (10:49)
--- NOTE | 2021-05-31 13:09 | OPERATIVE REPORT ---
DATE OF SERVICE: 05/30/2021 DELIVERY NOTE The patient delivered by spontaneous vaginal delivery a viable female with Apgars of 9 and 9 at 1 and 5 minutes respectively, weight of 6 pounds 8 ounces. Cord blood pH is pending and a time of 1843. The infant had a single nuchal cord that was easily released. The was bulb suctioned on delivery of the head. On completion of delivery was bulb suctioned again. The umbilical cord was doubly clamped, father cut the cord, the baby was passed to mom's abdomen. Dr. Goodson was on hand for delivery secondary to . The placenta delivered spontaneously [place]. It was normal with a 3-vessel cord. The cervix, vagina, rectum, and perineum were examined and found intact, except for a 4 cm left inner labia majora full thickness skin laceration. There were couple of small abrasions at the introitus as well. The defect in the left inner labia minora was repaired with a single suture of 3-0 Vicryl Rapide in a baseball stitch manner to good reapproximation and good hemostasis. The repair was made under the epidural analgesia. Sponge and needle counts were correct on completion of delivery and repair. Blood loss was around 250 mL. The patient tolerated the delivery and the repair well and remained in the LDR. The baby remained with the mom. Job ID: [id number] DocumentID: [id number] Dictated Date: 05/31/2021 11:01:35 Communications Department Chairperson Date: 05/31/2021 13:08:21 Dictated By: OSEAS ELLISON MD
[2021-05-31 13:30] VITALS: BP 112/53
[2021-05-31 17:45] VITALS: BP 107/55
[2021-05-31] MEDS: oxyCODONE/APAP 5/325MG (PERCOCET 5) TABLET PO PRN (17:57)
[2021-05-31] MEDS ORDERED: SIMETHICONE 80 MG (MYLICON) CHEW ONE (20:23)
[2021-06-01 00:23] VITALS: BP 115/67
[2021-06-01] MEDS: oxyCODONE/APAP 5/325MG (PERCOCET 5) TABLET PO PRN (00:23)
[2021-06-01] MEDS: IBUPROFEN 800 MG (MOTRIN) TAB PO SCH ×3 (00:24→12:38)
[2021-06-01] MEDS ORDERED: CALCIUM CARBONATE 500 MG (TUMS) TAB.CHEW PO PRN (04:00)
[2021-06-01] MEDS ORDERED: CALCIUM CARBONATE 500 MG (TUMS) TAB.CHEW ONE (04:01)
[2021-06-01 06:42] VITALS: BP 127/59
[2021-06-01] MEDS: DOCUSATE SODIUM 100 MG (COLACE) CAP PO SCH (08:28)
[2021-06-01 08:30] VITALS: BP 116/57
--- NOTE | 2021-06-01 10:55 | Progress Note ---
Standard Progress Note Progress Notes/Assess & Plan Date Seen by a Provider: Jun 01, 2021 Time Seen by a Provider: 10:54 Progress/Assessment & Plan This patient is without complaintShe is ambulating, voiding, tolerating oral intake well and has good pain control. Patient denies chest pain, denies shortness of breath, denies nausea vomiting, and denies headache. Patient is requesting discharge home. Vital Signs 05/31/21 05:36 Temp 36.7 Pulse 56 Resp 18 B/P (MAP) 92/50 (64) Pulse Ox 94 O2 Delivery Room Air Vital signs are stable. Patient is afebrile. Fundus is firm below the umbilicus and nontender Extremities show no clubbing cyanosis. There is no Homans' sign. Assessment and plan day #1 status post spontaneous vaginal delivery at 36+ weeks gestation. Patient is doing well and can be discharged home as needed June 01, 2021 This patient is without complaint. She is ambulating, voiding, tolerating oral intake well and has good pain control. Vital Signs 06/01/21 08:30 Temp 37.0 Pulse 67 Resp 18 B/P (MAP) 116/57 (76) Pulse Ox 97 O2 Delivery Room Air Vital signs are stable. Patient is afebrile. Fundus is firm below the umbilicus and nontender. Extremities show no clubbing or cyanosis. There is no Homans' sign. Assessment and plan day #1 status post spontaneous vaginal labor at 36+ weeks gestation. Plan is for discharge Final Diagnosis 36-week spontaneous vaginal delivery OSEAS ELLISON MD Jun 01, 2021 10:55
[2021-06-01 13:50] VITALS: BP 114/63
[2021-06-01 14:05] VITALS: BP 114/63
[2021-06-04] MEDS ORDERED: IBUPROFEN 800 MG (MOTRIN) TAB PO SCH
== END 2021-06-01 14:05 | disposition home or self-care (01) | DRG 807 ==
LOC: WSo 01:36 → LDRP 01:36 → WSo 06:42 → LDRP 21:50
PROVIDERS: ADMIT Obstetrics & Gynecology; ATTEND Obstetrics & Gynecology
PROC: 10E0XZZ Delivery of Products of Conception, External Approach (ICD-10-PCS; principal; 2021-05-31)
DX: O60.14X0 Preterm labor third trimester with preterm delivery third trimester, not applicable or unspecified (principal); Z37.0 Single live birth; Z3A.36 36 weeks gestation of pregnancy
CPT/HCPCS: 36415; 81000; 85025; 86850; 86900; 86901; 99212

== ENCOUNTER → 2022-07-01 | Outpatient (CLI) | payer BC ==
[~2022-07-01] MED LIST: DOCU-143 PO; DOCU-239 PO; IBUP-1780 PO; OXYC1TAB87 PO; PREN-98 PO
--- NOTE | 2022-07-01 12:25 | Diagnostic Imaging Report ---
INDICATION: Routine screening. COMPARISON: No prior mammograms are available for comparison. This is a baseline study. TECHNIQUE: 2D and 3D bilateral screening mammography was performed with CAD. FINDINGS: Both breasts are heterogeneously dense, limiting the sensitivity of mammography. No mass or malignant-appearing microcalcifications are seen. The axillae are unremarkable. IMPRESSION: No mammographic features suspicious for malignancy are identified. ACR BI-RADS Category 1: Negative. Result letter will be mailed to the patient. Note: At least 10% of breast cancer is not imaged by mammography. Dictated by: Dictated on workstation # [id number]
== END ==
LOC: RAD 07:15
PROVIDERS: ATTEND Internal Medicine
DX: Z12.31 Encounter for screening mammogram for malignant neoplasm of breast (principal)
CPT/HCPCS: 77063; 77067

== ENCOUNTER 2022-08-27 08:00 | Emergency (ER) | payer BC ==
[~2022-08-27] VITALS: Ht 160 cm; Wt 53.0 kg
[2022-08-27] MEDS ORDERED: FAMOTIDINE 20 MG (PEPCID) TABLET PO ONE (08:30)
[2022-08-27] MEDS ORDERED: ASPIRIN 81 MG CHEW (CHILDREN'S ASA) PO ONE (08:30)
[2022-08-27] MEDS ORDERED: PANTOPRAZOLE 40 MG (PROTONIX) VIAL IV ONE (08:30)
[2022-08-27 08:32] LABS: BASOPHILS % (AUTO) 0 % (0-10); EOSINOPHILS # (AUTO) 0.2 10^3/uL (0.0-0.3); EOSINOPHILS % (AUTO) 3 % (0-10); HEMATOCRIT 37 % (35-52); HEMOGLOBIN 12.2 g/dL (11.5-16.0); LYMPHOCYTES # (AUTO) 2.7 10^3/uL (1.0-4.0); LYMPHOCYTES % (AUTO) 35 % (12-44); MEAN CORPUSCULAR HEMOGLOBIN 29 pg (25-34); MEAN CORPUSCULAR HGB CONC 33 g/dL (32-36); MEAN CORPUSCULAR VOLUME 88 fL (80-99); MEAN PLATELET VOLUME 11.3 fL (9.0-12.2); MONOCYTES # (AUTO) 0.4 10^3/uL (0.0-1.0); MONOCYTES % (AUTO) 6 % (0-12); NEUTROPHILS # (AUTO) 4.3 10^3/uL (1.8-7.8); NEUTROPHILS % (AUTO) 56 % (42-75); PLATELET COUNT 222 10^3/uL (130-400); WHITE BLOOD COUNT 7.7 10^3/uL (4.3-11.0)
[2022-08-27 08:38] LABS: INR 1.1 (0.8-1.4); PROTHROMBIN TIME PATIENT 14.4 SEC (12.2-14.7)
[2022-08-27 08:42] LABS: POTASSIUM 3.5 MMOL/L (3.6-5.0)
[2022-08-27 08:44] LABS: CALCIUM 9.1 MG/DL (8.5-10.1)
[2022-08-27 08:47] LABS: BILIRUBIN,TOTAL 0.8 MG/DL (0.1-1.0)
[2022-08-27 08:49] LABS: CREATININE SERUM 0.79 MG/DL (0.60-1.30)
--- NOTE | 2022-08-27 08:49 | ED Chest Pain ---
General Chief Complaint: Chest Pain Stated Complaint: CHEST PAINS Nursing Triage Note: PT STATES SHE WOKE WITH MID CHEST PAIN ABOUIT THIS A.M. RADIATING TO RT SHOULDER, NO HEART HX, STATES ON PREDNISONE FROM ALLERGIC RXN WEDNESDAY Source: patient Exam Limitations: no limitations History of Present Illness Date Seen by Provider: Aug 27, 2022 Time Seen by Provider: 08:08 Initial Comments Here with report of mid chest pain and pressure this morning that radiated from the epigastric region upwards. States that it started about 4 AM and went away about 6 AM. She continued to be concerned about it and appropriately presented to the emergency department for further evaluation. She has been on prednisone recently for an allergic reaction that she suffered on Wednesday, 4 days ago. Denies weakness, sweating, breathing problems, dizziness or other concerns. Overall she is feeling better now. She has not had aspirin today. She does not smoke and does not have strong family history on her mother side but on her father side there is some history of cardiac disease presenting in the 50s. Does feel some epigastric burning right now. Timing/Duration: 4-6 hours Severity/Quality: moderate, pressure Location: central Radiation: sternal notch Activities at Onset: sleep Prior CP/Workup: no prior chest pain, no prior cardiac workup Modifying Factors: improves with rest ASA po STAFF MIDWIFE/APPRENTICESHIP DIRECTOR: No NTG SL STAFF MIDWIFE/APPRENTICESHIP DIRECTOR: No Associated Symptoms: abdominal pain; No back pain, No dizziness, No edema, No fever/chills, No nausea/vomiting, No shortness of breath, No weakness Allergies and Home Medications Allergies Coded Allergies: Penicillins (Verified Allergy, Unknown, 10/19/20) codeine (Verified Allergy, Unknown, Vomiting, 02/25/21) Patient Home Medication List Home Medication List Reviewed: Yes Docusate Sodium (Dok) 100 Mg Capsule, 100 MG PO BID Prescribed by: OSEAS HOU on 05/31/21 1049 Ibuprofen (Ibuprofen) 800 Mg Tablet, 800 MG PO Q6HR Prescribed by: OSEAS HOU on 05/31/21 1049 Oxycodone HCl/Acetaminophen (Percocet 5-325 mg Tablet) 1 Each Tablet, 1 TAB PO Q4H PRN for PAIN-MODERATE (5-7) Prescribed by: OSEAS HOU on 05/31/21 1049 Vit37/Iron/Folic Acid (Prenata Chewable Tablet) 1 Each Tab.chew, 1 EACH PO DAILY, (Reported) Entered as Reported by: CELESTINO LI on 05/30/21 0243 Review of Systems Review of Systems Constitutional: see HPI; No chills, No fever EENTM: No Nose Congestion, No Throat Pain Respiratory: Denies Cough, Denies Shortness of Air Cardiovascular: Chest Pain; Denies Edema, Denies Irregular Heart Rate, Denies Lightheadedness Gastrointestinal: Denies Nausea, Denies Vomiting Genitourinary: Denies Burning, Denies Pain Musculoskeletal: No back pain, No muscle pain Skin: no symptoms reported All Other Systems Reviewed Negative Unless Noted: Yes Past Mtsfyfv-Dgaqjh-Xjgliv Hx Patient Social History Tobacco Use?: No Substance use?: No Alcohol Use?: No Seasonal Allergies Seasonal Allergies: No Past Medical History Surgery/Hospitalization HX: ANXIETY Surgeries: No Respiratory: No Cardiac: No Neurological: No Last Menstrual Period: Aug 13, 2022 Genitourinary: No Gastrointestinal: No Musculoskeletal: No Endocrine: No HEENT: No Cancer: No Psychosocial: Yes Anxiety Integumentary: No Blood Disorders: No Family Medical History Reviewed Nursing Family Hx Physical Exam Vital Signs Vital Signs - First Documented 08/27/22 08:03 Temp 36.8 Pulse 76 Resp 18 B/P (MAP) 126/84 (98) Pulse Ox 100 O2 Delivery Room Air Capillary Refill : Less Than 3 Seconds Height, Weight, BMI Height: '" Weight: lbs. oz. kg; 20.00 BMI Method: General Appearance: No Apparent Distress, WD/WN HEENT: PERRL/EOMI, Pharynx Normal Neck: Non Tender, Supple Respiratory: Lungs Clear, Normal Breath Sounds Cardiovascular: Regular Rate, Rhythm, No Murmur Gastrointestinal: Non Tender, Soft Extremity: Normal Range of Motion, Non Tender Neurologic/Psychiatric: Alert, Oriented x3 Skin: Normal Color, Warm/Dry Progress/Results/Core Measures Results/Orders Lab Results Laboratory Tests Test 08/27/22 08:15 08/27/22 10:32 Range/Units White Blood Count 7.7 4.3-11.0 10^3/uL Red Blood Count 4.15 3.80-5.11 10^6/uL Hemoglobin 12.2 11.5-16.0 g/dL Hematocrit 37 35-52 % Mean Corpuscular Volume 88 80-99 fL Mean Corpuscular Hemoglobin 29 25-34 pg Mean Corpuscular Hemoglobin Concent 33 32-36 g/dL Red Cell Distribution Width 12.6 10.0-14.5 % Platelet Count 222 130-400 10^3/uL Mean Platelet Volume 11.3 9.0-12.2 fL Immature Granulocyte % (Auto) 0 % Neutrophils (%) (Auto) 56 42-75 % Lymphocytes (%) (Auto) 35 12-44 % Monocytes (%) (Auto) 6 0-12 % Eosinophils (%) (Auto) 3 0-10 % Basophils (%) (Auto) 0 0-10 % Neutrophils # (Auto) 4.3 1.8-7.8 10^3/uL Lymphocytes # (Auto) 2.7 1.0-4.0 10^3/uL Monocytes # (Auto) 0.4 0.0-1.0 10^3/uL Eosinophils # (Auto) 0.2 0.0-0.3 10^3/uL Basophils # (Auto) 0.0 0.0-0.1 10^3/uL Immature Granulocyte # (Auto) 0.0 0.0-0.1 10^3/uL Prothrombin Time 14.4 12.2-14.7 SEC INR Comment 1.1 0.8-1.4 Activated Partial Thromboplast Time 25 24-35 SEC D-Dimer 0.67 H 0.00-0.49 UG/ML Sodium Level 139 135-145 MMOL/L Potassium Level 3.5 L 3.6-5.0 MMOL/L Chloride Level 104 98-107 MMOL/L Carbon Dioxide Level 26 21-32 MMOL/L Anion Gap 9 5-14 MMOL/L Blood Urea Nitrogen 11 7-18 MG/DL Creatinine 0.79 0.60-1.30 MG/DL Estimat Glomerular Filtration Rate 97 BUN/Creatinine Ratio 14 Glucose Level 96 70-105 MG/DL Calcium Level 9.1 8.5-10.1 MG/DL Corrected Calcium 9.1 8.5-10.1 MG/DL Magnesium Level 2.0 1.6-2.4 MG/DL Total Bilirubin 0.8 0.1-1.0 MG/DL Aspartate Amino Transf (AST/SGOT) 19 5-34 U/L Alanine Aminotransferase (ALT/SGPT) 26 0-55 U/L Alkaline Phosphatase 47 40-136 U/L Myoglobin 38.8 10.0-92.0 NG/ML Troponin I < 0.028 < 0.028 <0.028 NG/ML Total Protein 7.0 6.4-8.2 GM/DL Albumin 4.0 3.2-4.5 GM/DL My Orders Orders - IMMANUEL CHAMBERS MD Ekg Tracing (08/27/22 08:03) Cbc With Automated Diff (08/27/22:23) Magnesium (08/27/22 08:23) Chest 1 View, Ap/Pa Only (08/27/22 08:23) Comprehensive Metabolic Panel (08/27/22) Myoglobin Serum (08/27/22) Protime With Inr (08/27/22:23) Partial Thromboplastin Time (08/27/22:23) O2 (08/27/22:) Monitor-Rhythm Ecg Trace Only (08/27/22:) Lipid Panel (08/28/22 06:00) Ed Iv/Invasive Line Start (08/27/22 08:23) Fibrin Degradation Products (08/27/22 08:23) Troponin I [place] (08/27/22 08:23) Aspirin Chewable Tablet (Baby Aspirin Ch (08/27/22 08:30) Pantoprazole Injection (Protonix Injecti (08/27/22 08:30) Famotidine Tablet (Pepcid Tablet) (08/27/22 08:30) Troponin I [place] (08/27/22 10:15) Medications Given in ED Current Medications Medications Dose Ordered Sig/Latrice Route Start Time Stop Time Status Last Admin Dose Admin Aspirin 324 mg ONCE ONCE PO 08/27/22 08:30 08/27/22 08:31 DC 08/27/22 08:40 324 MG Famotidine 20 mg ONCE ONCE PO 08/27/22 08:30 08/27/22 08:31 DC 08/27/22 08:40 20 MG Pantoprazole 40 mg ONCE ONCE IV 08/27/22 08:30 08/27/22 08:31 DC 08/27/22 08:40 40 MG Vital Signs/I&O 08/27/22 08:03 Temp 36.8 Pulse 76 Resp 18 B/P (MAP) 126/84 (98) Pulse Ox 100 O2 Delivery Room Air Blood Pressure Mean: 98 Progress Progress Note : Progress Note Seen and evaluated. IV, labs, EKG and chest x-ray ordered. We will evaluate for cardiac and blood clot etiology. Troponin and D-dimer ordered. EKG ordered and done and shows no acute findings of ST elevation [place] on my interpretation. ASA 324 mg p.o., Pepcid 20 mg p.o. and Protonix 40 mg IV ordered as this may be related to reflux secondary to steroid use. We will evaluate initial set of labs and if negative, we will repeat troponin at 2-hour jose carlos. This was discussed with patient and family who agree. Monitor patient. 1015: Overall doing much better. We will repeat troponin and if still negative, discharge home would be indicated. Patient agrees. Monitor patient. 1115: Repeat trop onin is negative. No concerning findings. D-dimer was slightly elevated but in the setting of steroid use and recent allergic reaction, I do not believe that it is indicative of any significant findings. She does have normal EKG and she is not tachycardic nor hypoxic. I believe the pain is related to likely reflux secondary to steroid use. This was discussed with the patient. She will initiate omeprazole for 2 weeks and follow-up with Dr. Dawkins for recheck and further evaluation and stress test or other cardiological evaluation this was discussed with patient and family who agree. Discharged home with return precautions. Patient verbalized understanding instructions and agreement with plan. If indicated. Initial ECG Impression Date: Aug 27, 2022 Initial ECG Impression Time: 08:08 Initial ECG Rate: 73 Initial ECG Rhythm: Normal Sinus Comment Sinus rhythm with normal but rightward axis. No evidence of ST elevation [place]. Question left atrial enlargement. Interpreted by me. Diagnostic Imaging Diagonstic Imaging: Xray Plain Films/CT/US/NM/MRI: chest Comments [facility], [place] NAME: [facility] REC#: [id number] PT STATUS: REG ER : 1980 PHYSICIAN: IMMANUEL CHAMBERS MD ADMIT DATE: 08/27/22/ER Signed Date of Exam:11/17/22 CHEST 1 VIEW, AP/PA ONLY INDICATION: Chest pain. FINDINGS: The heart size, mediastinal configuration, and pulmonary vascularity are within normal limits. There is no pleural effusion, pneumothorax, or pneumonia. The osseous structures are unremarkable. IMPRESSION: No acute cardiopulmonary abnormality. Dictated by: Dictated on workstation # [id number] Dict: 08/27/22 0919 Trans: 08/27/22 1017 [id number] Interpreted by: OLEG FALK MD Electronically signed by: OLEG FALK MD 08/27/227 Reviewed: Reviewed by Me Departure Impression Primary Impression: Chest pain Qualified Codes: R07.9 - Chest pain, unspecified Additional Impression: Gastroesophageal reflux disease Qualified Codes: K21.9 - Gastro-esophageal reflux disease without esophagitis Disposition: HOME, SELF-CARE Condition: Improved Departure-Patient Inst. Decision time for Depature: 11:16 Referrals: ROYAL DAWKINS DANIEL J MD (PCP/Family) Primary Care Physician Patient Instructions: Chest Pain (DC), Acid Reflux and GERD in Adults (DC) Add. Discharge Instructions: All discharge instructions reviewed with patient and/or family. Voiced understanding. You may initiate [id number] omeprazole 20 mg daily for 2 weeks. You may also take [id number] Pepcid or the generic famotidine 20 mg once or twice a day if burning pain worsens. Follow-up with Dr. Dawkins for recheck and further evaluation including evaluation for further cardiac studies if indicated. Return for worse pain, fever, vomiting, weakness, breathing problems, abnormal sweating, dizziness or other concerns as needed. Copy Copies To 1: ROYAL DAWKINS TIMOTHY D MD Aug 27, 2022 08:49
--- NOTE | 2022-08-27 09:27 | Diagnostic Imaging Report ---
INDICATION: Chest pain. FINDINGS: The heart size, mediastinal configuration, and pulmonary vascularity are within normal limits. There is no pleural effusion, pneumothorax, or pneumonia. The osseous structures are unremarkable. IMPRESSION: No acute cardiopulmonary abnormality. Dictated by: Dictated on workstation # [id number]
[2022-08-27 11:20] VITALS: BP 99/78
== END 2022-08-27 11:20 | disposition home or self-care (01) ==
LOC: EDUNIT# 08:00 → ER 08:02
DX: K21.9 Gastro-esophageal reflux disease without esophagitis (principal); R79.1 Abnormal coagulation profile; Z28.310 Unvaccinated for COVID-19
CPT/HCPCS: 36415; 71045; 80053; 83735; 83874; 84484; 85025; 85379; 85610; 85730; 93005; 93041

== ENCOUNTER 2022-10-01 19:39 | Emergency (ER) | payer BC ==
[~2022-10-01] VITALS: Ht 162 cm; Wt 53.0 kg
[2022-10-01] MEDS ORDERED: LIDOCAINE 1% INJ 20 ML VIAL INJ ONE (20:00)
--- NOTE | 2022-10-01 20:03 | ED Integumentary General ---
General Chief Complaint: Skin/Wound Problems Stated Complaint: CYST ON GROIN AREA History of Present Illness Date Seen by Provider: Oct 01, 2022 Time Seen by Provider: 19:54 Initial Comments 42-year-old female presents to ER with complaints of abscess to left groin. Reports it developed over 2 days. Denies any drainage from site. Denies fever, chills, vomiting, diarrhea. Reports some nausea due to the pain. Patient took ibuprofen prior to arrival which has improved pain. Timing/Duration: other (2 days) Associated Symptoms: other (nausea) Allergies and Home Medications Allergies Coded Allergies: Penicillins (Verified Allergy, Unknown, 10/19/20) codeine (Verified Allergy, Unknown, Vomiting, 02/25/21) Patient Home Medication List Home Medication List Reviewed: Yes Docusate Sodium (Dok) 100 Mg Capsule, 100 MG PO BID Prescribed by: OSEAS HOU on 05/31/21 1049 Ibuprofen (Ibuprofen) 800 Mg Tablet, 800 MG PO Q6HR Prescribed by: OSEAS HOU on 05/31/21 1049 Oxycodone HCl/Acetaminophen (Percocet 5-325 mg Tablet) 1 Each Tablet, 1 TAB PO Q4H PRN for PAIN-MODERATE (5-7) Prescribed by: OSEAS HOU on 05/31/21 1049 Vit37/Iron/Folic Acid (Prenata Chewable Tablet) 1 Each Tab.chew, 1 EACH PO DAILY, (Reported) Entered as Reported by: CELESTINO LI on 05/30/21 0243 Sulfamethoxazole/Trimethoprim (Bactrim Ds Tablet) 800 Mg-160 Mg Tablet, 1 EACH PO BID Prescribed by: Christa Saravia on 10/01/222022 Review of Systems Review of Systems Constitutional: no symptoms reported Respiratory: no symptoms reported Cardiovascular: no symptoms reported Gastrointestinal: No abdominal pain, No constipation, No diarrhea; nausea; No vomiting Genitourinary: no symptoms reported Skin: other (abscess) Past Yzyzyse-Hsdfqw-Fwilrh Hx Seasonal Allergies Seasonal Allergies: No Past Medical History Surgery/Hospitalization HX: ANXIETY Surgeries: No Respiratory: No Cardiac: No Neurological: No Genitourinary: No Gastrointestinal: No Musculoskeletal: No Endocrine: No HEENT: No Cancer: No Psychosocial: Yes Anxiety Integumentary: No Blood Disorders: No Physical Exam Vital Signs Capillary Refill : General Appearance: WD/WN, no apparent distress Neck: supple, normal inspection Cardiovascular: regular rate, rhythm, no edema, no gallop, no JVD, no murmur Respiratory: lungs clear, normal breath sounds, no respiratory distress, no acc essory muscle use Skin: other (abscess) Skin Problem Location: other (groin) Skin Problem Character: abscess (no area of fluctuation, large area of induration), swelling (no area of fluctuation, large area of induration) Progress/Results/Core Measures Results/Orders My Orders Orders - CHRISTA SARAVIA APRN Lidocaine 1% Inj 20 Ml (Xylocaine 1% Inj (10/01/22 20:00) Rx-Trimeth/Sulfameth Ds Tab (Rx-Bactrim/ (10/01/22 20:14) Rx-Oxycodone/Apap 5-325 Mg (Rx-Percocet (10/01/22 20:15) Progress Progress Note : Time: 20:25 Progress Note US used to assess abscess, no area of fluctuation, large area of induration. Unable to I&D abscess at this time. Departure Impression Primary Impression: Abscess Disposition: 01 HOME, SELF-CARE Condition: Stable Departure-Patient Inst. Referrals: ROYAL DAWKINS DO (PCP/Family) Primary Care Physician Patient Instructions: Skin Abscess Add. Discharge Instructions: Use warm compresses for 20 minutes at a time several times a day. Take antibiotic as prescribed. Finish prescription even if symptoms improve. Take Percocet as needed. May also take ibuprofen as needed. Return for any new or concerning symptoms. Abscess may eventually form a head which can be drained at that time. Follow-up with your primary care provider. All discharge instructions reviewed with patient and/or family. Voiced understanding. Scripts Sulfamethoxazole/Trimethoprim (Bactrim Ds Tablet) 800 Mg-160 Mg Tablet 1 EACH PO BID for 9 Days, #18 TAB Prov: CHRISTA SARAVIA APRN 10/01/22 CHRISTA SARAVIA APRN Oct 01, 2022 20:03
[2022-10-01] MEDS ORDERED: RX-TRIMETH/SULFA. 160-800 MG (BACTRIM DS) TAB PPK#2 PO STA (20:14)
[2022-10-01] MEDS ORDERED: RX-OXYCODONE/APAP 5-325 MG #4 TAB PK PO PRN (20:15)
[2022-10-01] MEDS ORDERED: SULF-221 PO (20:23)
[2022-10-01 20:30] VITALS: BP 118/67
== END 2022-10-01 20:30 | disposition home or self-care (01) ==
LOC: EDUNIT# 19:39 → ER 19:42
DX: L02.214 Cutaneous abscess of groin (principal); Z88.0 Allergy status to penicillin; Z88.5 Allergy status to narcotic agent
CPT/HCPCS: 99283

== ENCOUNTER 2022-10-03 15:41 | Emergency (ER) | payer BC ==
[~2022-10-03] VITALS: Ht 160 cm; Wt 54.0 kg
[~2022-10-03 15:41] MED LIST changes: +SULF-221 PO
--- NOTE | 2022-10-03 15:54 | ED Integumentary General ---
General Chief Complaint: Skin/Wound Problems Stated Complaint: GROIN ABSCESS Source: patient Exam Limitations: no limitations History of Present Illness Date Seen by Provider: Oct 03, 2022 Time Seen by Provider: 15:53 Initial Comments 42 y/o female presents today with c/o abscess to left inguinal area. Pt states it has been present for 3 days, was seen here on 10/01/22 and prescribed Bactrim. She has had 4 doses of that. Pt states the abscess has gotten larger and more painful, redness streaking to thigh and out towards hip. Pt has been taking ibuprofen with minimal relief. She states she was prescribed percocet, but has not taken it because it makes her sleepy and she has a baby to care for. Timing/Duration: getting worse Severity: moderate Location: genitalia Associated Symptoms: denies symptoms Allergies and Home Medications Allergies Coded Allergies: Penicillins (Verified Allergy, Unknown, 10/19/20) codeine (Verified Allergy, Unknown, Vomiting, 02/25/21) Patient Home Medication List Home Medication List Reviewed: Yes Docusate Sodium (Dok) 100 Mg Capsule, 100 MG PO BID Prescribed by: OSEAS HOU on 05/31/21 1049 Ibuprofen (Ibuprofen) 800 Mg Tablet, 800 MG PO Q6HR Prescribed by: OSEAS HUO on 05/31/21 1049 Oxycodone HCl/Acetaminophen (Percocet 5-325 mg Tablet) 1 Each Tablet, 1 TAB PO Q4H PRN for PAIN-MODERATE (5-7) Prescribed by: OSEAS HOU on 05/31/21 1049 Vit37/Iron/Folic Acid (Prenata Chewable Tablet) 1 Each Tab.chew, 1 EACH PO DAILY, (Reported) Entered as Reported by: CELESTINO LI on 05/30/21 0243 Sulfamethoxazole/Trimethoprim (Bactrim Ds Tablet) 800 Mg-160 Mg Tablet, 1 EACH PO BID Prescribed by: Christa Rothman on 10/01/222022 Review of Systems Review of Systems Constitutional: no symptoms reported Respiratory: no symptoms reported Cardiovascular: no symptoms reported Gastrointestinal: no symptoms reported Musculoskeletal: no symptoms reported Skin: lumps (abscess to left inguinal area) Past Wtofhag-Jfseoe-Ltpmyd Hx Immunizations Up To Date First/Initial COVID19 Vaccinat: DECLINED Seasonal Allergies Seasonal Allergies: No Past Medical History Surgery/Hospitalization HX: ANXIETY Surgeries: No Respiratory: No Cardiac: No Neurological: No Genitourinary: No Gastrointestinal: No Musculoskeletal: No Endocrine: No HEENT: No Cancer: No Psychosocial: Yes Anxiety Integumentary: No Blood Disorders: No Physical Exam Vital Signs Vital Signs - First Documented 10/03/22 15:56 Temp 36.6 Pulse 101 Resp 20 B/P (MAP) 118/64 (82) Pulse Ox 99 Capillary Refill : General Appearance: WD/WN Gastrointestinal: non tender, soft Skin Problem Location: other (left inguinal area) Skin Problem Character: abscess (5cm x 2cm oval shaped, tender abscess with well defined margins), erythema ([id number] surrounding erythema), swelling, tenderness, warm Lymphatic: no adenopathy Procedures/Interventions I&D : Site: left inguinal area Blade Size: 11 I & D Procedure: betadine prep, Wound Packing Packing/Drain: Idoform 1 (2cm) Progress copious amount of purulent discharge expressed from site with significant reduction in size of abscess Progress/Results/Core Measures Results/Orders My Orders Orders - ALIE PIERRE GRIP ASSEMBLER Lidocaine 1% Inj 20 Ml (Xylocaine 1% Inj (10/03/22 16:03) Ceftriaxone (Rocephin) (10/03/22 16:30) Lidocaine 1% Inj 20 Ml (Xylocaine 1% Inj (10/03/22 16:30) Hydrocodone/Apap 5/325 Tablet (Lortab 5 (10/03/22 16:30) Medications Given in ED Current Medications Medications Dose Ordered Sig/Latrice Route Start Time Stop Time Status Last Admin Dose Admin Acetaminophen/ Hydrocodone Bitart 1 ea ONCE ONCE PO 10/03/22 16:30 10/03/22 16:31 DC 10/03/22 16:40 1 EA Ceftriaxone Sodium 1,000 mg ONCE ONCE IM 10/03/22 16:30 10/03/22 16:31 DC 10/03/22 16:41 1,000 MG Lidocaine HCl 2.1 ml ONCE ONCE INJ 10/03/22 16:30 10/03/22 16:31 DC 10/03/22 16:41 2.1 ML Lidocaine HCl 20 ml STK-MED ONCE .ROUTE 10/03/22 16:03 10/03/22 16:06 DC 10/03/22 16:08 5 ML Vital Signs/I&O 10/03/22 10/03/22 15:56 16:45 Temp 36.6 36.6 Pulse 101 101 Resp 20 20 B/P (MAP) 118/64 (82) 118/64 Pulse Ox 99 99 Departure Impression Primary Impression: Abscess Disposition: HOME, SELF-CARE Condition: Stable Departure-Patient Inst. Decision time for Depature: 16:26 Referrals: ROYAL DAWKINS DO (PCP/Family) Primary Care Physician Patient Instructions: Abscess Incision and Drainage (DC) Add. Discharge Instructions: Continue Bactrim as prescribed. Tylenol 500mg every 4 hours as needed. Ibuprofen 800mg every 8 hours as needed. Take packing strip out in 24 hours. Follow up with PCP on Wednesday or Wednesday for recheck. Follow up with any new/worsening concerns All discharge instructions reviewed with patient and/or family. Voiced understanding. ALIE PIERRE APRN Oct 03, 2022 15:54
[2022-10-03] MEDS ORDERED: LIDOCAINE 1% INJ 20 ML VIAL ONE (16:03)
[2022-10-03] MEDS ORDERED: cefTRIAXone 1,000 MG VIAL IM ONE (16:30)
[2022-10-03] MEDS ORDERED: HYDROcodone/APAP 5 MG/325 MG (LORTAB) TAB PO ONE (16:30)
[2022-10-03] MEDS ORDERED: LIDOCAINE 1% INJ 20 ML VIAL INJ ONE (16:30)
[2022-10-03 16:45] VITALS: BP 118/64
== END 2022-10-03 16:46 | disposition home or self-care (01) ==
LOC: EDUNIT# 15:41 → ER 15:44
DX: L02.214 Cutaneous abscess of groin (principal); Z88.0 Allergy status to penicillin; Z88.5 Allergy status to narcotic agent
CPT/HCPCS: 10061

== ENCOUNTER 2022-10-06 09:37 | Outpatient (CLI) | payer BC ==
[~2022-10-06] VITALS: Ht 162.5 cm; Wt 54.5 kg
[2022-10-06] MEDS ORDERED: GABA-486 PO (10:15)
== END 2022-10-06 13:42 ==
LOC: PREOP 09:37
PROVIDERS: ATTEND Obstetrics & Gynecology
DX: Z01.818 Encounter for other preprocedural examination (principal); N92.0 Excessive and frequent menstruation with regular cycle; N94.6 Dysmenorrhea, unspecified

== ENCOUNTER 2022-10-09 07:59 | Day surgery (SDC) | payer BC ==
[2022-10-09] VITALS (13 sets, daily range): BP systolic 91–124; BP diastolic 51–88
[~2022-10-09] VITALS: Ht 162.5 cm; Wt 54.5 kg
[~2022-10-09 07:59] MED LIST changes: +GABA-486 PO
[2022-10-09 08:49] LABS: BASOPHILS % (AUTO) 1 % (0-10); EOSINOPHILS # (AUTO) 0.3 10^3/uL (0.0-0.3); EOSINOPHILS % (AUTO) 6 % (0-10); HEMATOCRIT 40 % (35-52); HEMOGLOBIN 13.2 g/dL (11.5-16.0); LYMPHOCYTES # (AUTO) 1.2 10^3/uL (1.0-4.0); LYMPHOCYTES % (AUTO) 23 % (12-44); MEAN CORPUSCULAR HEMOGLOBIN 30 pg (25-34); MEAN CORPUSCULAR HGB CONC 33 g/dL (32-36); MEAN CORPUSCULAR VOLUME 90 fL (80-99); MEAN PLATELET VOLUME 10.7 fL (9.0-12.2); MONOCYTES # (AUTO) 0.4 10^3/uL (0.0-1.0); MONOCYTES % (AUTO) 8 % (0-12); NEUTROPHILS # (AUTO) 3.4 10^3/uL (1.8-7.8); NEUTROPHILS % (AUTO) 63 % (42-75); PLATELET COUNT 317 10^3/uL (130-400); WHITE BLOOD COUNT 5.4 10^3/uL (4.3-11.0)
[2022-10-09] MEDS: LACTATED RINGERS 1,000 ML IV PRN ×2 (08:52→10:36)
--- NOTE | 2022-10-09 09:11 | Progress Note-Pre Operative ---
Pre-Operative Progress Note Date of Available H&P: Oct 09, 2022 Date H&P Reviewed: Oct 09, 2022 Time H&P Reviewed: 09:11 History & Physical: H&P Reviewed, No changes noted Pre-Operative Diagnosis: Menorrhagia and dysmenorrhea OSEAS ELLISON MD Oct 09, 2022 09:11
--- NOTE | 2022-10-09 09:12 | Progress Note-Post Operative ---
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
[2022-10-09] MEDS ORDERED: IBUPROFEN 800 MG (MOTRIN) TAB PO SCH (09:15)
[2022-10-09] MEDS ORDERED: PROMETHAZINE INJ 25 MG/ML (PHENERGAN) AMP IM PRN (09:15)
[2022-10-09] MEDS ORDERED: OXYC-199 PO (09:16)
[2022-10-09] MEDS ORDERED: DOCU-143 PO (09:16)
[2022-10-09] MEDS ORDERED: IBUP-1780 PO (09:16)
--- NOTE | 2022-10-09 09:18 | Discharge Inst-Surgical ---
Discharge Inst-Surgical Depart Medication/Instructions New, Converted or Re-Newed RX: Transmitted to Pharmacy Consults/Follow Up Orders & Referrals Follow Up Appt: Return to clinic in 1 week for suture removal Call to make follow up appt. for patient in 4 weeks. Activity: Rest for 24 hours, than as tolerated. Wound Care: May remove Band-Aid tomorrow. Replace as desired. Keep incisions clean and dry. Wash daily with soap and water. Diet: As tolerated shower or tub bathe as desired. No driving for 24 hours, no alcoholic beverages for 24 hours, and nothing per vagina (no tampons, douching, or intercourse) for 8 weeks. Patient to return to the clinic as soon as possible for: Temperature greater than 101F, Severe Pain, Foul discharge from incision or vagina, Excessive Bleeding (more than a period). Activity Activity as Tolerated: No Diet Discharge Diet: No Restrictions OSEAS ELLISON MD Oct 09, 2022 09:18
[2022-10-09] MEDS ORDERED: BUP/EPI 0.25% 1:200,000 (MARCAINE) 30 ML VIAL ONE (09:30)
[2022-10-09] MEDS ORDERED: MIDAZOLAM 2 MG/2 ML (VERSED) VIAL ONE (09:47)
[2022-10-09] MEDS ORDERED: fentaNYL INJ 100 MCG/2 ML AMP ONE ×2 (09:47→11:45)
[2022-10-09] MEDS ORDERED: BUP/EPI 0.25% 1:200,000 (MARCAINE) 30 ML VIAL INJ ONE (10:09)
[2022-10-09] MEDS ORDERED: GLYCOPYRROLATE 0.2 MG/ML (ROBINUL) 2 ML VIAL ONE (10:47)
[2022-10-09] MEDS ORDERED: ROCURONIUM 50 MG/5 ML (ZEMURON) VIAL IV ONE (10:47)
[2022-10-09] MEDS ORDERED: PHENYLEPHRINE 100 MCG/ML 10 ML (ANESTHESIA) SYR ONE (10:47)
[2022-10-09] MEDS ORDERED: LIDOCAINE PF 2% 5 ML (XYLOCAINE) VIAL ONE (10:47)
[2022-10-09] MEDS ORDERED: NEOSTIGMINE (BLOXIVERZ ) 1 MG/1ML 10 ML VIAL ONE (10:47)
[2022-10-09] MEDS ORDERED: ONDANSETRON 4 MG/2 ML (SDV) Z0FRAN ONE (10:47)
[2022-10-09] MEDS ORDERED: proPOfol 200 MG/20 ML (DIPRIVAN) VIAL IV ONE (10:47)
[2022-10-09] MEDS ORDERED: SEVOFLURANE (ULTANE) 15 ML INHAL SOLN ONE (11:08)
--- NOTE | 2022-10-09 11:14 | Anesthesia-General Post-Op ---
General Patient Condition Mental Status/LOC: Same as Preop Cardiovascular: Satisfactory Nausea/Vomiting: Absent Respiratory: Satisfactory Pain: Controlled Complications: Absent Post Op Complications Complications None Follow Up Care/Instructions Patient Instructions None needed. Anesthesia/Patient Condition Patient Condition Patient is doing well, no complaints, stable vital signs, no apparent adverse anesthesia problems. No complications reported per nursing. AKILAH COELHO CRNA Oct 09, 2022 11:14
[2022-10-09] MEDS: KETOROLAC 30 MG/ML VIAL IV SCH ×3 (11:16→23:27)
[2022-10-09] MEDS: HYDROmorphone 2 MG/ML VIAL (DILAUDID) ONE (11:25)
[2022-10-09] MEDS ORDERED: ONDANSETRON 4 MG/2 ML (SDV) Z0FRAN IVP PRN (11:30)
[2022-10-09] MEDS ORDERED: HYDROmorphone 2 MG/ML VIAL (DILAUDID) IV ONE (11:45)
[2022-10-09] MEDS ORDERED: fentaNYL INJ 100 MCG/2 ML AMP IVP ONE (11:45)
[2022-10-09] MEDS: MEPERIDINE (DEMEROL) INJ 100 MG/ML IM PRN ×2 (12:53→20:12)
[2022-10-09] MEDS: ONDANSETRON 4 MG/2 ML (SDV) Z0FRAN IVP PRN ×2 (13:08→20:09)
[2022-10-09] MEDS: D5 LR IV SOLUTION 1,000 ML IV SCH ×2 (14:44→22:40)
--- NOTE | 2022-10-09 18:48 | OPERATIVE REPORT ---
DATE OF SERVICE: 10/09/2022 PREOPERATIVE DIAGNOSES: Menorrhagia and menometrorrhagia and severe dysmenorrhea. POSTOPERATIVE DIAGNOSES: Menorrhagia and menometrorrhagia and severe dysmenorrhea with appendicitis and appendiceal mass. OPERATIVE PROCEDURE: Total laparoscopic hysterectomy with bilateral salpingectomy and laparoscopic appendectomy and laparoscopic adhesiolysis. OPERATIVE DESCRIPTION: With the patient in the supine position, under satisfactory general anesthesia, she was repositioned in the dorsal lithotomy position in the [facility] and prepped and draped in the usual fashion for abdominal and vaginal surgery using the da Samantha assistance. Weighted speculum was placed in the posterior fornix of the vagina. Cervix was grasped anteriorly with a single tooth tenaculum. The uterus was sounded to 12 cm uterine sound. The cervix was then serially dilated with Kali dilators to accommodate a PAO II manipulator, which was placed using a 6 mm x 8 cm uterine probe and a 25 mm colpotomy ring. Sutures of #1 Vicryl were placed at 3 and 9 o'clock position of the cervix to affix the uterus to the manipulator. The patient was brought into the low dorsal lithotomy position. Tenaculum and speculum removed and Lee catheter was placed in the urinary bladder. A 12 mm incision was made in the midline superior to the umbilicus. A Veress needle was placed through that incision into the abdominal cavity. Correct placement confirmed with water drop test and the abdomen was insufflated with 2.4 liters of carbon dioxide. The Veress needle was removed and a 12 mm port placed. The abdominal wall was then transilluminated with the laparoscope. Ports of 8 mm were placed 8 cm lateral to the umbilicus. Under direct vision, the patient was placed in Trendelenburg allowing the bowels spill up out of the pelvis. The da Samantha column was advanced on the patient, docked. Operative instruments were placed in the right and left lateral ports and I retired to the da Samantha console. At the console, using the vessel sealer on the right and a bipolar fenestrated grasper on the left, the pelvis was first examined. Both fallopian tubes were somewhat tortuous. There were a couple of spots that appeared to be consistent with endometriosis. The uterus was somewhat boggy and mottled consistent with adenomyosis as well. The cul-de-sac was clear and free. The laparoscope was rotated. The appendix was identified. It was densely involved in adhesions to the terminus of the pericolic gutter on the right. It was injected and enlarged and nodular. Decision was made to go ahead with appendectomy concurrent with the balance of the procedures. Attention was turned back to the pelvis. The right fallopian tube was grasped and elevated. The mesosalpinx was clamped, cauterized, and divided with the vessel sealer that was continued over to the uteroovarian pedicle, which was treated in the same manner as was the round ligament, the broad ligament and the dissection was carried down on to the cardinal ligament. Same procedure was performed on the left, allowing for eventual removal of both fallopian tubes conservation of both ovaries. The anterior lower uterine segment peritoneum was doubt now divided with monopolar radha allowing the bladder to be dissected down off the lower uterine segment and off of the cervicouterine junction. The colpotomy incision was started on the colpotomy ring at the 12 o'clock position. The incision was then continued circumferentially until the entire colpotomy ring was exposed. The uterus was extracted through the vagina with the tubes still attached. The vaginal cuff was closed with a single suture of V-Loc barbed suture in the usual manner to good hemostasis and good reapproximation. Attention was now turned to the appendix with the da Samantha column undocked. Using the laparoscope in the right lateral port, stapler in the umbilical port and a grasper in the left lateral port, the appendix was grasped and elevated. The Endo-ELLIOTT was placed across the base of appendix and fired the appendix from its attachments. The appendix was placed in an Endobag and brought out through the umbilical port. The stump of the appendix was copiously irrigated. The cul-de-sac was irrigated. All irrigant was aspirated out and then the stump of the appendix was treated with several drops of Betadine solution. With the laparoscopic portion complete the operative instruments were removed under direct vision as were the ports. The abdomen was evacuated of the insufflating gas in the process of removing the ports. The skin incisions in the abdomen were closed with interrupted nylon sutures. The fascia at the supraumbilical incision was closed with a [id number] suture of 2-0 Vicryl. Speculum was replaced in the vagina. Vaginal cuff examined. It was completely reapproximated and completely hemostatic. Sponge and needle counts were correct. Hemostasis was assured. BLOOD LOSS: Minimal. The patient was uneventfully awakened from her general anesthesia and transferred to recovery room in stable condition. Job ID: [id number] DocumentID: [id number] Dictated Date: 10/09/2022 11:10:23 Mdm Sr Date: 10/09/2022 18:46:00 Dictated By: OSEAS ELLISON MD
[2022-10-10] MEDS ORDERED: fentaNYL INJ 100 MCG/2 ML AMP IVP PRN (01:00)
[2022-10-10 04:56] VITALS: BP 103/56
[2022-10-10] MEDS: KETOROLAC 30 MG/ML VIAL IV SCH (04:59)
[2022-10-10 08:15] VITALS: BP 109/62
[2022-10-10] MEDS: ONDANSETRON 4 MG/2 ML (SDV) Z0FRAN IVP PRN (09:03)
[2022-10-10] MEDS ORDERED: methylPREDNISolone 40 MG/ML (Solu-MEDROL) VIAL IV ONE (09:15)
[2022-10-10] MEDS: D5 LR IV SOLUTION 1,000 ML IV SCH ×4 (09:15→18:27)
--- NOTE | 2022-10-10 09:18 | Progress Note ---
Standard Progress Note Progress Notes/Assess & Plan Date Seen by a Provider: Oct 10, 2022 Time Seen by a Provider: 09:16 Progress/Assessment & Plan This patient is voiding well. She does not tolerate much in the way of oral intake because of nausea and has been persistent. She has not had an episode of emesis. We have given Zofran we will add a dose of Solu-MedrolAnd continue observation. Patient is otherwise ambulatory and has adequate pain control. Vital Signs Date Time Temp Pulse Resp B/P (MAP) Pulse Ox O2 Delivery O2 Flow Rate FiO2 10/10/22 08:15 36.7 89 18 109/62 (78) 98 Room Air 10/10/22 04:56 36.6 95 18 103/56 (72) 96 Room Air 10/09/22 23:25 36.3 90 16 92/52 (65) 97 Room Air 10/09/22 19:58 36.1 91 18 100/65 (77) 96 Room Air 10/09/22 17:05 36.5 87 18 101/63 (76) 96 Room Air 10/09/22 15:14 Room Air 10/09/22 14:32 36.9 100 16 91/53 (66) 95 Room Air 10/09/22 12:55 76 16 94/52 (66) 99 Nasal Cannula 1.00 10/09/22 12:10 Nasal Cannula 2.00 10/09/22 12:10 36.9 87 16 91/51 (64) 100 Nasal Cannula 2.00 10/09/22 12:10 36.2 20 104/66 (79) 97 Nasal Cannula 2.00 10/09/22 12:00 20 106/71 (83) 97 Nasal Cannula 2.00 10/09/22 12:00 Nasal Cannula 2.00 10/09/22 11:50 20 107/73 (84) 100 Nasal Cannula 2.00 10/09/22 11:45 OxyMask 2.00 10/09/22 11:40 20 107/73 (84) 100 OxyMask 2.00 10/09/22 11:30 OxyMask 3.00 10/09/22 11:30 20 120/88 (99) 100 OxyMask 2.00 10/09/22 11:20 20 124/77 (93) 100 OxyMask 4.00 10/09/22 11:15 OxyMask 4.00 10/09/22 11:09 OxyMask 4.00 10/09/22 11:09 36.2 20 107/66 (80) 100 OxyMask 4.00 I & O 10/10/22 07:00 Intake Total 4050 ml Output Total 2700 ml Balance 1350 ml Vital signs are stable. Patient is afebrile. Abdomen is benign Extremities show no clubbing or cyanosis. There is no Homans' sign. Assessment and plan Postoperative day #1 with persistent nausea. We have been giving Zofran we will reinstitute IV fluids for hydration and give a dose of Solu-Medrol. Plan will be to allow discharge home when patient is ambulating, voiding, tolerating oral intake and has good pain control OSEAS ELLISON MD Oct 10, 2022 09:18
[2022-10-10 11:35] VITALS: BP 110/65
[2022-10-10] MEDS: KETOROLAC 30 MG/ML VIAL IVP PRN ×2 (11:40→18:15)
[2022-10-10] MEDS: MEPERIDINE (DEMEROL) INJ 100 MG/ML IM PRN (14:04)
[2022-10-10 15:15] VITALS: BP 108/70
[2022-10-10] MEDS: oxyCODONE/APAP 5/325MG (PERCOCET 5) TABLET PO PRN (18:16)
[2022-10-10] MEDS ORDERED: METOCLOPRAMIDE 10 MG (REGLAN) TAB ONE (19:17)
[2022-10-10] MEDS ORDERED: METOCLOPRAMIDE INJ 10 MG/2 ML (REGLAN) ONE (20:16)
[2022-10-10 20:19] VITALS: BP 124/73
[2022-10-10] MEDS: DOCUSATE SODIUM 100 MG (COLACE) CAP PO SCH (20:21)
[2022-10-10] MEDS ORDERED: METOCLOPRAMIDE INJ 10 MG/2 ML (REGLAN) IVP SCH (21:00)
[2022-10-11 01:46] VITALS: BP 109/64
[2022-10-11 05:37] VITALS: BP 108/61
[2022-10-11] MEDS: oxyCODONE/APAP 5/325MG (PERCOCET 5) TABLET PO PRN ×2 (08:53→08:56)
[2022-10-11] MEDS: DOCUSATE SODIUM 100 MG (COLACE) CAP PO SCH (08:53)
[2022-10-11 08:56] VITALS: BP 116/74
== END 2022-10-11 09:20 | disposition home or self-care (01) ==
LOC: SDC 07:59 → WS 11:10 → SDC 10-11 09:20
PROVIDERS: ATTEND Obstetrics & Gynecology
DX: N92.0 Excessive and frequent menstruation with regular cycle (principal); N92.1 Excessive and frequent menstruation with irregular cycle; K37 Unspecified appendicitis; N94.5 Secondary dysmenorrhea
CPT/HCPCS: 36415; 84703; 85025; 87081; 88304; 88307; 94664